=== PATIENT | female | born 1965 | race African-American/Black ===

== ENCOUNTER 2018-10-23 17:25 | Emergency (ER) | payer SELFPAY ==
[~2018-10-23 17:25] MED LIST: Sodium Chloride 0.9% 1,000 ML BAG ONE
[2018-10-23 17:50] LABS: #Basophils 0.1 thou/uL (0.0-0.2); #Eosinphils 0.1 thou/uL (0.0-0.7); #Lymphocytes 3.4 thou/uL (1.20-3.40); #Monocytes 0.7 thou/uL (0.11-0.59); #Neutrophils 4.9 thou/uL (1.40-6.50); %Basophils 0.9 % (0.0-1.0); %Eosinophils 0.9 % (0.0-10.0); %Lymphocytes 37.6 % (21.0-51.0); %Monocytes 7.2 % (0.0-10.0); %Neutrophils 53.4 % (42.0-75.0); Mean Corpuscular HGB CONC 30.2 g/dL (32.0-36.0); Mean Corpuscular Hemoglobin 26.2 pg (27.0-31.0); Mean Corpuscular Volume 86.6 fL (78.0-98.0); Platelet Count 341 thou/uL (130-400); Red Blood Cell (RBC) Count 4.58 mill/uL (4.20-5.40); White Blood Cell (WBC) Count 9.1 thou/uL (4.8-10.8)
[2018-10-23 18:07] LABS: ALT (SGPT) 19 U/L (8-55); AST (SGOT) 18 U/L (5-34); Albumin 4.2 g/dL (3.5-5.0); Alkaline Phosphatase 117 U/L (40-150); Anion Gap 10 mmol/L (10-20); BUN (Urea Nitrogen) 14 mg/dL (9.8-20.1); Bilirubin, Total 0.5 mg/dL (0.2-1.2); Calc. Creatinine Clearance 0 mL/min (70-130); Carbon Dioxide 24 mmol/L (22-29); Chloride 108 mmol/L (98-107); Estimated GFR-MDRD 64; Globulin 3.9 g/dL (2.4-3.5); Glucose 111 mg/dL (70-105); Potassium 3.6 mmol/L (3.5-5.1); Protein, Total 8.1 g/dL (6.0-8.3); Sodium 138 mmol/L (136-145)
[2018-10-23 18:11] LABS: Calcium 12.7 mg/dL (7.8-10.44)
[2018-10-23] MEDS ORDERED: HYDROcodone/Acetaminophen 5/325 mg Tablet ONE ×2 (18:13→21:47)
[2018-10-23] MEDS ORDERED: Acetaminophen 325 MG TAB ONE (18:14)
[2018-10-23] MEDS ORDERED: Ibuprofen 800 MG TAB ONE (18:14)
--- NOTE | 2018-10-23 18:32 | RAD ---
PORTABLE UPRIGHT FRONTAL CHEST RADIOGRAPH: 10/23/2018 HISTORY: Pain. Tachycardia. COMPARISON: None. FINDINGS: Mild increased interstitial density. No pneumothorax, pleural fluid, focal consolidation, or alveola r edema. IMPRESSION: No acute findings. POS: [facility]
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
[2018-10-23] MEDS ORDERED: Cyclobenzaprine 10 MG TAB ONE (21:47)
== END 2018-10-23 22:00 | disposition home or self-care (01) ==
LOC: MADERS 17:25
DX: S93.401A Sprain of unspecified ligament of right ankle, initial encounter (principal); S20.219A Contusion of unspecified front wall of thorax, initial encounter; I10 Essential (primary) hypertension; E83.52 Hypercalcemia; V89.2XXA Person injured in unspecified motor-vehicle accident, traffic, initial encounter
CPT/HCPCS: 36415; 71045; 71120; 80053; 84484; 85025; 93005; 96360; J7050

== ENCOUNTER 2020-06-20 15:22 | Emergency (ER) | payer SELFPAY ==
[2020-06-20 16:08] LABS: Bilirubin Negative (Negative); Blood, Urine Large (Negative); Glucose, Urine (Dipstick) Negative (Negative); Ketone, Urine Negative (Negative); Leukocyte Large (Negative); Nitrite Negative (Negative); Protein, Urine (Dipstick) > or equal to 300 mg/dL (Neg-Trace); Urobilinogen 0.2 mg/dL (Less than 2); pH, Urine 6.5 (5.0-9.0)
[2020-06-20] MEDS ORDERED: Sodium Chloride 0.9% 1,000 ML ONE ×2 (16:08→16:53)
[2020-06-20 16:10] LABS: Clarity Cloudy (Clear)
[2020-06-20 16:16] LABS: Bacteria/HPF 4+ HPF (None Seen); WBC/HPF Greater Than 50 HPF (0-3)
[2020-06-20 16:46] LABS: ALT (SGPT) 12 U/L (8-55); AST (SGOT) 13 U/L (5-34); Albumin 4.2 g/dL (3.5-5.0); Alkaline Phosphatase 86 U/L (40-110); Anion Gap 20 mmol/L (10-20); BUN (Urea Nitrogen) 30 mg/dL (9.8-20.1); Bilirubin, Total 0.3 mg/dL (0.2-1.2); Calc. Creatinine Clearance 0 mL/min (70-130); Carbon Dioxide 16 mmol/L (22-29); Chloride 109 mmol/L (98-107); Estimated GFR-MDRD 17; Glucose 103 mg/dL (70-105); Lipase 40 U/L (8-78); Magnesium 2.4 mg/dL (1.6-2.6); Potassium 4.1 mmol/L (3.5-5.1); Protein, Total 9.2 g/dL (6.0-8.3); Sodium 141 mmol/L (136-145)
[2020-06-20] MEDS ORDERED: Sodium Chloride 0.9% 100 ML ONE (16:53)
[2020-06-20] MEDS ORDERED: cefTRIAXone\\ROCEPHIN 2 GM VIAL ONE (16:53)
[2020-06-20 16:58] LABS: Calcium 12.8 mg/dL (7.8-10.44)
[2020-06-20 17:04] LABS: Band 2 % (5-11); Hemoglobin 10.8 g/dL (12.0-16.0); Lymphocytes 13 % (21-51); MDiff Complete? YES; Mean Corpuscular HGB CONC 29.7 g/dL (32.0-36.0); Mean Corpuscular Hemoglobin 26.3 pg (27.0-31.0); Mean Corpuscular Volume 88.7 fL (78.0-98.0); Mean Platelet Volume 6.1 fL (7.4-10.4); Metamyelocyte 1 % (0-0); Monocytes 5 % (0-10); Neutrophil 71 % (42-75); Platelet Count 403 thou/uL (130-400); Platelet Morphology Comment Appears Increased; RBC Distribution Width 15.4 % (11.5-14.5); Reactive Lymphocytes 8 % (0-10); Red Blood Cell (RBC) Count 4.12 mill/uL (4.20-5.40); White Blood Cell (WBC) Count 17.3 thou/uL (4.8-10.8)
== END 2020-06-20 18:05 | disposition short-term general hospital (02) ==
LOC: MADERS 15:22
DX: E21.3 Hyperparathyroidism, unspecified (principal); N30.00 Acute cystitis without hematuria; D64.9 Anemia, unspecified; E86.0 Dehydration; I10 Essential (primary) hypertension; Z79.899 Other long term (current) drug therapy
CPT/HCPCS: 36415; 80053; 81003; 81015; 83605; 83690; 83735; 84443; 84484; 85025; 87040; 93005; 96365; J0696; J3490; J7050